=== PATIENT | male | born 1995 | race Hispanic/Latino ===

== ENCOUNTER 2017-01-31 19:51 | Emergency (ER) | payer OTHER ==
[~2017-01-31] VITALS: Ht 162.6 cm; Wt 80.4 kg
[2017-01-31] MEDS ORDERED: PRED1SUS OP (20:02)
[2017-01-31] MEDS ORDERED: PRED10TA2 PO (20:02)
[2017-01-31] MEDS ORDERED: ONDANSETRON 4MG/2ML VIAL (J2405) IV ONE (20:30)
[2017-01-31] MEDS ORDERED: NS 1,000 ML IV ONE (20:30)
[2017-01-31] MEDS: MORPHINE 4 MG/ML 1ML SYRINGE IV PRN ×2 (20:45→21:07)
[2017-01-31 20:54] LABS: BASO % 0.3 % (0.0-1.0); EOS # 0.2 K/mm3 (0.0-0.50); EOS % 2.1 % (0.0-3.0); LARGE UNSTAINED CELL # 0.1 K/mm3 (0.0-0.4); LARGE UNSTAINED CELL % 0.6 % (0.0-4.0); LYMPH # 1.2 K/mm3 (1.5-6.5); LYMPH % 15.6 % (24.0-44.0); MEAN CORPUSCULAR HEMOGLOBIN 30.3 pg (27.0-33.0); MEAN CORPUSCULAR HGB CONC 34.1 g/dl (32.0-36.5); MEAN CORPUSCULAR VOLUME 89.1 fl (80.0-96.0); MONO # 0.1 K/mm3 (0.0-0.8); MONO % 1.3 % (0.0-5.0); NEUTROPHILS % 80.1 % (36.0-66.0); PLATELET COUNT, AUTOMATED 221 k/mm3 (150-450); RED CELL DISTRIBUTION WIDTH 12.6 % (11.5-14.5); WHITE BLOOD COUNT 7.4 K/mm3 (4.0-10.0)
[2017-01-31 21:19] LABS: ANION GAP 7 MEQ/L (8-16); BLOOD UREA NITROGEN 21 MG/DL (7-18); CALCIUM LEVEL 9.6 MG/DL (8.5-10.1); CARBON DIOXIDE LEVEL 27 MEQ/L (21-32); CHLORIDE LEVEL 103 MEQ/L (98-107); CREATININE FOR GFR 1.21 MG/DL (0.70-1.30); GLOMERULAR FILTRATION RATE > 60.0 (>60); GLUCOSE, FASTING 123 MG/DL (70-105); SODIUM LEVEL 137 MEQ/L (136-145)
[2017-01-31] MEDS ORDERED: ISOVUE-370 76% 100ML VIAL (Q9967) As Ordered ONE (21:55)
--- NOTE | 2017-01-31 22:20 | REPUSA ---
CT of the abdomen and pelvis with and without contrast Clinical statement: Pain. Technique: Multiple axial CT images were obtained from the base of the lungs through the floor of the pelvis utilizing 5 mm axial slices before and after administration of oral and nonionic intravenous contrast. Coronal and sagittal reconstructions were also obtained. No comparison is available. Findings: Chest: The visualized lung bases are clear. Abdomen: The liver, spleen, pancreas, kidneys, gallbladder, and adrenal glands are unremarkable. The aorta is within normal limits. There is no evidence of abdominal lymphadenopathy or ascites. Pelvis: The bowel is unremarkable, with no obstructive or inflammatory changes. The appendix is micheal l. The urinary bladder is within normal limits. The other pelvic structures appear grossly intact. Th ere is no evidence of pelvic lymphadenopathy or ascites. Bones: There are no suspicious osseous abnormalities seen. Impression: Unremarkable CT examination of the abdomen and pelvis.
[2017-01-31] MEDS ORDERED: NORCOTAB PO (22:27)
[2017-01-31 22:41] VITALS: BP 127/65
== END 2017-01-31 22:48 | disposition home or self-care (01) ==
LOC: M ED 19:51
DX: N28.9 Disorder of kidney and ureter, unspecified (principal); R11.2 Nausea with vomiting, unspecified; F17.200 Nicotine dependence, unspecified, uncomplicated
CPT/HCPCS: 74178; 80048; 81001; 83605; 85025; 96361; 96374; 96375; 99283; J2405; Q9967

== ENCOUNTER → 2017-05-01 | Outpatient (CLI) | payer OTHER ==
[~2017-05-01] MED LIST: NORCOTAB PO; PRED10TA2 PO; PRED1SUS OP; PROHANCE 279.3MG/ML 15ML VIAL (A9576) As Ordered ONE
--- NOTE | 2017-05-04 08:16 | REP ---
MRI brain and maxillofacial without and with contrast: History: Uveitis. Comparison study: No comparison study. Technique: Axial and sagittal imaging planes are utilized for T1 and T2-weighted scans. Sequences include spin-echo, fast spin echo, FLAIR, and diffusion weighted sequences. Gadolinium enhancement dose is 16 ml of intravenous ProHance. MRI findings: No bony calvarial lesion is seen. Craniocervical junction and upper cervical cord are normal in appearance. There is no MR evidence of significant paranasal sinus disease. No intraorbital abnormality is seen. The lateral, third, and fourth ventricles are normal in size and position. Mckenzie-white differentiation pattern is intact above and below the tentorium. There is no evidence of intracranial hemorrhage. No mass, infarction, extra-axial fluid collection or midline shift is seen. No abnormal white matter lesion is seen. No abnormal gadolinium enhancement is seen. Impression: Negative MRI brain and orbits without and with IV gadolinium. Signed by Nitin Singh MD 05/04/2017 08:07 A
== END ==
LOC: M RAD 17:23
PROVIDERS: ATTEND Ophthalmology
DX: H44.113 Panuveitis, bilateral (principal)

== ENCOUNTER 2020-03-14 08:46 | Inpatient (IN) | payer OTHER ==
[~2020-03-14] VITALS: Ht 162.6 cm; Wt 85.6 kg
[~2020-03-14 08:46] MED LIST changes: +HYDR-3715 PO; -NORCOTAB PO; -PRED1SUS OP; +PRED1SUS2 OP; -PROHANCE 279.3MG/ML 15ML VIAL (A9576) As Ordered ONE
[2020-03-14] MEDS ORDERED: DORZ2SOL5 OD (09:10)
[2020-03-14] MEDS ORDERED: HUMI40KI2 SQ (09:10)
[2020-03-14] MEDS ORDERED: METH2.5T48 PO (09:10)
[2020-03-14] MEDS ORDERED: NS 1,000 ML IV ONE ×5 (10:15→17:00)
[2020-03-14] MEDS ORDERED: ONDANSETRON 4MG/2ML VIAL IV ONE (10:15)
[2020-03-14] MEDS ORDERED: ACETAMINOPHEN 500 MG TAB PO ONE (10:15)
[2020-03-14 10:46] LABS: BASO % 0.5 % (0.0-1.0); EOS # 0.2 10^3/uL (0.0-0.5); EOS % 2.4 % (0.0-3.0); HEMATOCRIT 43.5 % (42.0-52.0); HEMOGLOBIN 14.5 g/dl (13.5-17.5); LYMPH # 2.3 10^3/uL (1.5-5.0); LYMPH % 25.6 % (24.0-44.0); MEAN CORPUSCULAR HEMOGLOBIN 29.9 pg (27.0-33.0); MEAN CORPUSCULAR HGB CONC 33.3 g/dl (32.0-36.5); MEAN CORPUSCULAR VOLUME 89.7 fl (80.0-96.0); MONO # 0.7 10^3/uL (0.0-0.8); MONO % 7.9 % (0.0-5.0); NEUTROPHILS # 5.6 10^3/uL (1.5-8.5); NEUTROPHILS % 63.4 % (36.0-66.0); PLATELET COUNT, AUTOMATED 171 10^3/uL (150-450); RED BLOOD COUNT 4.85 10^6/uL (4.30-6.10); WHITE BLOOD COUNT 8.8 10^3/uL (4.0-10.0)
[2020-03-14 11:08] LABS: ALBUMIN 4.2 GM/DL (3.2-5.2); BILIRUBIN,DIRECT 0.1 MG/DL (0.0-0.2); BILIRUBIN,TOTAL 0.4 MG/DL (0.2-1.0)
[2020-03-14] MEDS ORDERED: MORPHINE 2 MG/ML 1ML VIAL (J2270) IV ONE (12:15)
--- NOTE | 2020-03-14 12:48 | REPVR ---
PROCEDURE INFORMATION: Exam: CT Abdomen And Pelvis Without Contrast Exam date and time: 03/14/2020 12:17 PM Age: 25 years old Clinical indication: Abdominal pain; Additional info: Lower abd pain, elevated renal function TECHNIQUE: Imaging protocol: Computed tomography of the abdomen and pelvis without contrast. Radiation optimization: All CT scans at this facility use at least one of these dose optimization techniques: automated exposure control; mA and/or kV adjustment per patient size (includes targeted exams where dose is matched to clinical indication); or iterative reconstruction. COMPARISON: CT ABD PELVIS W/O FOL BY WIT 01/31/2017 9:49 PM FINDINGS: Detailed evaluation of the abdominal and pelvic viscera is somewhat limited in the absence of intravenous contrast. Lungs: Mild basilar airspace disease. Liver: Fatty infiltration of the liver and left lobe granuloma. Gallbladder and bile ducts: No cholelithiasis or biliary ductal dilatation. Pancreas: No pancreatic mass or ductal dilatation. Spleen: No splenomegaly. Adrenals: Unremarkable adrenals. Kidneys and ureters: Two 1 mm nonobstructing renal calculi. Mild infiltration of perinephric and periureteral fat. Stomach and bowel: Prominent stool and diverticula, without pericolonic inflammation. Appendix: No acute appendicitis. Intraperitoneal space: No free-fluid . Vasculature: Normal caliber of the abdominal aorta. Lymph nodes: Subcentimeter lymph nodes. Bladder: Normal bladder morphology . Reproductive: Unremarkable as visualized. Bones/joints: L5 spondylolysis. Soft tissues: Small fat containing umbilical hernia. IMPRESSION: 1. Two 1 mm nonobstructing renal calculi. 2. Additional findings as described above. Electronically signed by: Peter Briggs On 03/14/2020 12:48:22 PM
[2020-03-14] MEDS ORDERED: NALOXONE INJ 0.4MG/1ML VIAL (J2310 PER 1MG) IV PRN (14:30)
[2020-03-14] MEDS ORDERED: PERCOCET 5MG/325MG TAB PO PRN ×2 (14:30)
[2020-03-14 14:31] LABS: CK-MB VALUE MASS 2.1 NG/ML (<3.6); MB/CK RELATIVE INDEX 0.37 (< OR =4)
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
[2020-03-14] MEDS ORDERED: BISACODYL 5 MG TAB PO PRN (15:00)
[2020-03-14] MEDS ORDERED: SENOKOT S TAB PO PRN (15:00)
[2020-03-14] MEDS ORDERED: MOM 30ML SUSPENSION UDC PO PRN (15:00)
[2020-03-14] MEDS ORDERED: FOLI1TAB11 PO (15:02)
[2020-03-14] MEDS ORDERED: VITMTA PO (15:02)
[2020-03-14 15:35] LABS: CALCIUM LEVEL 8.4 MG/DL (8.5-10.1); CREATININE FOR GFR 3.08 MG/DL (0.70-1.30); GLOMERULAR FILTRATION RATE 26.3 (>60); POTASSIUM SERUM 4.2 MEQ/L (3.5-5.1)
[2020-03-14 16:15] VITALS: BP 131/69
[2020-03-14] MEDS: MORPHINE 30 MG TAB **MSIR PO SCH ×2 (17:24→21:02)
[2020-03-14] MEDS: ONDANSETRON 4MG/2ML VIAL IV PRN (17:32)
[2020-03-14] MEDS: MORPHINE 10 MG/ML 1ML VIAL (J2270) IV PRN ×2 (18:28→22:10)
[2020-03-14 21:25] VITALS: BP 124/71
[2020-03-15] MEDS: MORPHINE 30 MG TAB **MSIR PO SCH ×7 (01:00→21:52)
[2020-03-15 05:27] VITALS: BP 122/71
[2020-03-15] MEDS: ONDANSETRON 4MG/2ML VIAL IV PRN (07:56)
[2020-03-15] MEDS: MORPHINE 10 MG/ML 1ML VIAL (J2270) IV PRN (07:56)
[2020-03-15 07:57] LABS: HEMATOCRIT 40.3 % (42.0-52.0); HEMOGLOBIN 13.1 g/dl (13.5-17.5); MEAN CORPUSCULAR HEMOGLOBIN 29.4 pg (27.0-33.0); MEAN CORPUSCULAR HGB CONC 32.5 g/dl (32.0-36.5); MEAN CORPUSCULAR VOLUME 90.6 fl (80.0-96.0); PLATELET COUNT, AUTOMATED 168 10^3/uL (150-450); RED BLOOD COUNT 4.45 10^6/uL (4.30-6.10); WHITE BLOOD COUNT 7.7 10^3/uL (4.0-10.0)
[2020-03-15 08:20] LABS: BLOOD UREA NITROGEN 21 MG/DL (7-18); CALCIUM LEVEL 8.3 MG/DL (8.5-10.1); CARBON DIOXIDE LEVEL 26 MEQ/L (21-32); CHLORIDE LEVEL 114 MEQ/L (98-107); CREATININE FOR GFR 2.53 MG/DL (0.70-1.30); GLOMERULAR FILTRATION RATE 32.9 (>60); GLUCOSE, FASTING 92 MG/DL (70-100); MAGNESIUM LEVEL 2.7 MG/DL (1.8-2.4); POTASSIUM SERUM 4.4 MEQ/L (3.5-5.1); SODIUM LEVEL 146 MEQ/L (136-145)
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
--- NOTE | 2020-03-15 08:41 | REPVR ---
PROCEDURE INFORMATION: Exam: US Retroperitoneal Limited, Kidneys Exam date and time: 03/15/2020 8:31 AM Age: 25 years old Clinical indication: Condition or disease; Kidney or ureter condition; Chronic kidney disease or failure; Ckd stage 3 (moderate); Additional info: Creatinine 3 renal failure TECHNIQUE: Imaging protocol: Real-time ultrasound of the retroperitoneum with image documentation. Examination was focused on the kidneys. COMPARISON: CT ABD PELVIS W/O CONTRAST 03/14/2020 12:12 PM FINDINGS: Right kidney: Increased bilateral renal parenchymal echotexture, consistent with medical renal disease. Right kidney measures 9.8 cm in length. No renal mass or hydronephrosis. Left kidney: Left kidney measures 10.4 cm in length. No renal mass or hydronephrosis. Bladder: Normal bladder morphology. IMPRESSION: Increased bilateral renal parenchymal echotexture, consistent with medical renal disease. Electronically signed by: Peter Briggs On 03/15/2020 08:41:06 AM
[2020-03-15] MEDS: NS 0.45% 1,000 ML IV SCH ×2 (13:17→14:41)
[2020-03-15 13:40] LABS: HEPATITIS B SURFACE ANTIGEN NEGATIVE (NEGATIVE)
[2020-03-15 14:00] VITALS: BP 120/71
[2020-03-15 14:06] LABS: HEPATITIS B CORE ANTIBODY IGM NEGATIVE (NEGATIVE); HEPATITIS C VIRUS ABY INDEX 0.3 INDEX (<0.8)
[2020-03-15 14:09] LABS: HEPATITIS A ANTIBODY IGM NEGATIVE (NEGATIVE)
[2020-03-15 18:48] LABS: CALCIUM LEVEL 8.2 MG/DL (8.5-10.1); CREATININE FOR GFR 2.01 MG/DL (0.70-1.30); POTASSIUM SERUM 3.9 MEQ/L (3.5-5.1)
[2020-03-15] MEDS ORDERED: NS 1,000 ML IV SCH (20:00)
[2020-03-15 21:31] LABS: HEMOGLOBIN A1c 5.8 %
[2020-03-15 21:58] VITALS: BP 125/72
[2020-03-16] MEDS: MORPHINE 30 MG TAB **MSIR PO SCH ×6 (00:35→20:11)
[2020-03-16 05:45] VITALS: BP 132/86
[2020-03-16 06:57] LABS: CALCIUM LEVEL 8.8 MG/DL (8.5-10.1); CREATININE FOR GFR 1.81 MG/DL (0.70-1.30); GLOMERULAR FILTRATION RATE 48.5 (>60); POTASSIUM SERUM 4.3 MEQ/L (3.5-5.1)
[2020-03-16] MEDS ORDERED: NS 1,000 ML IV ONE ×2 (08:00→09:00)
[2020-03-16] MEDS: NS 0.45% 1,000 ML IV SCH ×3 (11:03→20:09)
[2020-03-16 12:26] LABS: CALCIUM LEVEL 8.6 MG/DL (8.5-10.1); CREATININE FOR GFR 1.56 MG/DL (0.70-1.30); GLOMERULAR FILTRATION RATE 57.6 (>60); POTASSIUM SERUM 4.2 MEQ/L (3.5-5.1)
[2020-03-16 14:00] VITALS: BP 135/64
--- NOTE | 2020-03-16 15:17 | IPN ---
DATE: 03/15/2020 SUBJECTIVE: Patient denies any flank pain, hematuria, fever, or chills. Denies any shortness of breath this morning. No dizziness or lightheadedness. OBJECTIVE: PHYSICAL EXAMINATION: Vital signs: Temperature 97.8, pulse 75, respiratory rate 18, blood pressure 122/71, 96% on room air. Generally: Awake, alert, oriented times three, answering questions appropriately. No jugular venous distension (JVD) or thyromegaly. Pupils are equal, round, and reactive to light and accommodation. Extraocular muscles intact. Anicteric sclerae. No jaundice. No cervical lymphadenopathy. Lungs: Clear to auscultation. No wheezing, rales, or rhonchi. Heart: S1, S2, sinus rhythm. No murmurs, rubs, or gallops. Abdomen: Soft, nontender, nondistended. Positive bowel sounds. Extremities: No cyanosis or clubbing. LABORATORY DATA: White count 7.7, hemoglobin 13, hematocrit 40, platelet count 168, sodium 146, potassium 4.4, chloride 114, bicarbonate 26, BUN 21, creatinine 2.53, glucose of 92, total CK of 361. CT abdomen and pelvis 03/14/2020, two 1 mm nonobstructing renal calculi. Mild infiltration of paranephric and periureteral fat. No acute appendicitis. No free fluid. Subcentimeter lymph nodes. Unremarkable L5 spondylosis. Small fat containing umbilical hernia. ASSESSMENT AND PLAN: This is a 25-year-old with L5 spondylosis, uveitis, umbilical hernia, presents to the emergency room with acute onset of flank pain found to have two nonobstructing kidney stones and acute kidney injury with creatinine of 3.08. Patient denies any nonsteroidal anti-inflammatory drug (NSAID) use. CURRENT ISSUES: 1. Acute kidney injury possibly secondary to MTX use and kidney stones. Currently on IV fluid trial. Strict intake and output, daily weights, and avoiding nephrotoxins, renally dosing all medications. Await kidney stone analysis, nonobstructive according to the CT, and repeat ultrasound. 2. Nonobstructing kidney stones. Currently on IV fluids, pain medications, avoiding NSAIDs. 3. Hypernatremia. Most likely secondary to normal saline boluses. Therefore, will change to half-normal saline. 4. Elevated total creatine kinase (CK). Possible mild rhabdomyolysis. 5. Mild proteinuria. Check antinuclear antibody (KELSIE), hepatitis serology, erythrocyte sedimentation rate (ESR). No hematuria or red blood cells (RBCs) noted on the urinalysis. MTDD
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
[2020-03-16 19:10] LABS: CALCIUM LEVEL 8.8 MG/DL (8.5-10.1); CREATININE FOR GFR 1.56 MG/DL (0.70-1.30); GLOMERULAR FILTRATION RATE 57.6 (>60); POTASSIUM SERUM 4.1 MEQ/L (3.5-5.1)
[2020-03-16 22:00] VITALS: BP 121/61
[2020-03-17] MEDS: MORPHINE 30 MG TAB **MSIR PO SCH ×3 (00:20→08:26)
[2020-03-17 05:46] VITALS: BP 141/82
[2020-03-17 08:19] LABS: BLOOD UREA NITROGEN 17 MG/DL (7-18); CALCIUM LEVEL 9.3 MG/DL (8.5-10.1); CARBON DIOXIDE LEVEL 30 MEQ/L (21-32); CHLORIDE LEVEL 108 MEQ/L (98-107); CREATININE FOR GFR 1.39 MG/DL (0.70-1.30); GLOMERULAR FILTRATION RATE > 60.0 (>60); GLUCOSE, FASTING 93 MG/DL (70-100); POTASSIUM SERUM 4.5 MEQ/L (3.5-5.1); SODIUM LEVEL 143 MEQ/L (136-145)
[2020-03-17 16:07] LABS: ANTINUCLEAR ANTIBODIES DIRECT Negative (Negative)
--- NOTE | 2020-04-10 08:56 | DSES ---
DATE OF ADMISSION: 03/14/2020 DATE OF DISCHARGE: 03/17/2020 PRIMARY DISCHARGE DIAGNOSES: 1. Renal colic. 2. Nonobstructive kidney stone. 3. Uveitis. 4. History of traumatic injury. 5. Obstructive uropathy. 6. Nephrolithiasis. 7. Chronic medical disease. DISCHARGE MEDICATIONS: - Humira - torsemide - timolol one drop, right eye (OD), twice a day - folic acid 2 mg daily - methotrexate 20 mg weekly - multivitamin daily HOSPITAL COURSE: A 25-year-old male, admitted on March 14 with complaints of flank due to nonobstructing kidney stones without fever, chills, or hematuria. Patient was found to have a creatinine of 3. His methotrexate was held, as this could be nephrotoxic. He was given IV fluids. He did not have any metabolic acidosis or hyperkalemia. He was kept on strict intake and output and daily weights. Patient received 4 liters of fluids on March 14, 4 liters of March 15, 2 liters of March 16, and 760 mL on March 17 with resultant improvement in creatinine to 1.39. CT abdomen and pelvis on 03/14/2020 showed two 1 mm nonobstructing renal calculi, L5 spondylolysis, small fat containing umbilical hernia, prominent stool without pericolonic inflammation, mild infiltration of perinephric and periureteral fat. No pancreatic mass or dilatation. No cholelithiasis. Fatty liver and left lobe granuloma. Renal ultrasound 03/15/2020 shows increased bilateral renal parenchymal echotexture, consistent with medical renal disease. Patient was discharged in stable condition with creatinine of 1.3. PHYSICAL EXAMINATION ON DISCHARGE: VITAL SIGNS: Temperature 98.1, pulse 51, respiratory rate 20, blood pressure 141/82, 99% on room air. GENERAL: Patient is awake, alert, oriented to person, place, and time. Anicteric sclerae. No jaundice. No icterus. No costovertebral angle (CVA) tenderness. LUNGS: Clear to auscultation. No wheezing, rales, or rhonchi. HEART: S1, S2, sinus bradycardia. ABDOMEN: Soft, nontender, nondistended. No costovertebral angle (CVA) tenderness. Positive bowel sounds times four quadrants. EXTREMITIES: No pitting edema. LABORATORY DATA: March 15, white count 7.7, hemoglobin 13, hematocrit 40, platelet count 168. Sodium 143, potassium 4.5, chloride 108, bicarbonate 30, BUN 17, creatinine 1.39, glucose 93. March 14, CT abdomen and pelvis: Nonobstructing 1 mm kidney stone. Renal ultrasound: Chronic medical renal disease. TIME SPENT ON DISCHARGE: 30 minutes. MTDD
== END 2020-03-17 08:40 | disposition home or self-care (01) | DRG 694 ==
LOC: M ED 08:46 → M ED INP 08:47 → ENRESERVDT 15:19 → ENRESERVTM 15:19 → M MS5PR 15:50 → INTOOBSV 03-16 10:13 → OBSVTOIN 03-16 10:13 → UNDODISOB 03-17 08:40
PROVIDERS: ADMIT General Practice; ATTEND General Practice
DX: N20.0 Calculus of kidney (principal); N17.9 Acute kidney failure, unspecified; E87.0 Hyperosmolality and hypernatremia; Z79.899 Other long term (current) drug therapy; H20.13 Chronic iridocyclitis, bilateral; T45.1X5A Adverse effect of antineoplastic and immunosuppressive drugs, initial encounter